=== PATIENT | female | born 1950 | race Caucasian/White ===

== ENCOUNTER 2017-03-05 12:49 | Emergency (ER) | payer MEDICARE, BC ==
[2017-03-05 12:51] VITALS: BP 149/91; PULSE 97; RESP 16; TEMP 99.3; O2SAT 98
[2017-03-05 14:02] LABS: BACTERIA, URINE OCC /hpf; BLOOD, URINE SMALL (NEG); COMMENT (UR) CULTURE INDICATED; CULTURE IF INDICATED CULTURE INDICATED; GLUCOSE,URINE NEG (NEG); KETONE, URINE NEG (NEG); NITRITE,URINE NEG (NEG); PH, URINE 5.5 (5.0-8.5)
[2017-03-05 14:03] LABS: URINE COLOR ORANGE (YELLW/STRAW)
[2017-03-05] MEDS ORDERED: MACR100C2 PO (14:13)
--- NOTE | 2017-03-05 14:14 | PD ---
HPI Chief Complaint: Complaint Time Seen by Provider: 13:42 Travel History International Travel<30 days: No Contact w/Intl Traveler<30days: No Traveled to known affect area: No History of Present Illness HPI Patient is a 66-year-old female presenting to the emergency department for evaluation of urinary symptoms. Patient states that she was seen and evaluated in urgent care clinic on and was prescribed Septra and Pyridium. She reports at that time she was urinating bloody urine. Her symptoms started on and included frequency, urgency, dysuria, she denies any fevers, chills , nausea, vomiting but states she has had low back pain. Patient was compliant with Septra but continues to have symptoms and presented to the emergency room for evaluation. [facility] Past Medical History Diminished Hearing: No Medical other: Yes (hormonal and insomnia) Tetanus Vaccination: Unknown ?: Not Tubal Ligation: Yes Social History Alcohol Use: No Tobacco Use: No Substance Use: No Allergies-Medications (Allergen,Severity, Reaction): Coded Allergies: No Known Allergies (Unverified , 03/05/17) Review of Systems Except as stated in HPI: all other systems reviewed are Neg Genitourinary: Positive: Urgency, Frequency, Dysuria, Hematuria Physical Exam Narrative GENERAL: Well-developed, well-nourished, alert elderly female. Resting comfortably in no acute distress. SKIN: Warm and dry. HEAD: Normocephalic. EYES: No scleral icterus. No injection or drainage. NECK: Supple, trachea midline. No JVD or lymphadenopathy. CARDIOVASCULAR: Regular rate and rhythm without murmurs, gallops, or rubs. RESPIRATORY: Breath sounds equal bilaterally. No accessory muscle use. GASTROINTESTINAL: Abdomen soft, non-tender, nondistended. MUSCULOSKELETAL: No cyanosis, or edema. BACK: Nontender without obvious deformity. No CVA tenderness. Data Data Last Documented VS Vital Signs Date Time Temp Pulse Resp B/P (MAP) Pulse Ox O2 Delivery O2 Flow Rate FiO2 03/05/17 12:51 99.3 97 16 149/91 (110) 98 Orders Orders Urinalysis - C+S If Indicated (03/05/17 13:42) Urine Culture (03/05/17 13:45) Labs Laboratory Tests Test 03/05/17 13:45 Urine Color ORANGE Urine Turbidity CLEAR Urine pH 5.5 Urine Specific [place] 1.007 Urine Protein TRACE mg/dL Urine Glucose (UA) NEG mg/dL Urine Ketones NEG mg/dL Urine Occult Blood SMALL Urine Nitrite NEG Urine Bilirubin NEG Urine Urobilinogen LESS THAN 2.0 MG/DL Urine Leukocyte Esterase LARGE Urine RBC 2 /hpf Urine WBC 53 /hpf Urine WBC Clumps OCC Urine Bacteria OCC /hpf Microscopic Urinalysis Comment CULTURE INDICATED MDM Medical Decision Making Medical Screen Exam Complete: Yes Emergency Medical Condition: Yes Interpretation(s) Vital Signs Date Time Temp Pulse Resp B/P (MAP) Pulse Ox O2 Delivery O2 Flow Rate FiO2 03/05/17 12:51 99.3 97 16 149/91 (110) 98 Laboratory Tests Test 03/05/17 13:45 Urine Color ORANGE Urine Turbidity CLEAR Urine pH 5.5 Urine Specific [place] 1.007 Urine Protein TRACE mg/dL Urine Glucose (UA) NEG mg/dL Urine Ketones NEG mg/dL Urine Occult Blood SMALL Urine Nitrite NEG Urine Bilirubin NEG Urine Urobilinogen LESS THAN 2.0 MG/DL Urine Leukocyte Esterase LARGE Urine RBC 2 /hpf Urine WBC 53 /hpf Urine WBC Clumps OCC Urine Bacteria OCC /hpf Microscopic Urinalysis Comment CULTURE INDICATED Differential Diagnosis Pyelonephritis versus cystitis versus urinary tract infection versus other Narrative Course Patient is a 66-year-old female presenting for reevaluation of urinary symptoms. She was initially evaluated in urgent care center. She continues to be symptomatically despite compliance with antibiotics. Patient's vital signs are stable, she is afebrile. Urinalysis ordered and pending. Urinalysis consistent with urinary tract infection. Patient will be started on Macrobid. She is encouraged to increase fluid intake, follow up with her primary doctor. She was encouraged to return to emergency department for any new or worsening symptoms. She verbalized understanding of instructions. Patient is stable for discharge. Diagnosis Primary Impression: UTI (urinary tract infection) Qualified Codes: N39.0 - Urinary tract infection, site not specified; R31.9 - Hematuria, unspecified Referrals: Primary Care Physician 3 days Patient Instructions: General Instructions, Urinary Tract Infection in Women ( [place]) Additional Instructions: Follow-up with your primary doctor Complete full course of antibiotics as prescribed Return to emergency department for any new or worsening symptoms Increased fluid intake Med/Other Pt SpecificInfo: Prescription(s) given Scripts Nitrofurantoin Monohydrate Macrocrystals (Macrobid) 100 Mg Cap 100 MG PO BID for Infection, #14 CAP 0 Refills Prov: Nessa Griffin 03/05/17 Disposition: 01 DISCHARGE HOME Condition: Stable Nessa Griffin Mar 05, 2017 14:14
== END 2017-03-05 14:54 | disposition home or self-care (01) ==
LOC: NEPD 12:49
DX: N39.0 Urinary tract infection, site not specified (principal); B96.20 Unspecified Escherichia coli [E. coli] as the cause of diseases classified elsewhere; R31.9 Hematuria, unspecified
CPT/HCPCS: 81001; 87077; 87086; 87186; 99283